=== PATIENT | male | born 1995 | race Caucasian/White ===

== ENCOUNTER 2016-06-05 17:43 | Emergency (ER) | payer BC ==
[2016-06-05 17:57] VITALS: BP 132/77
[2016-06-05] MEDS ORDERED: diphenhydrAMINE HCL 50 MG/ML VIAL IM ONE (18:54)
[2016-06-05] MEDS ORDERED: BENZTROPINE MESYLATE 0.5 MG TABLET PO ONE (19:15)
[2016-06-05] MEDS ORDERED: BENZTROPINE MESYLATE 1 MG/ML AMPUL ONE (19:18)
[2016-06-05] MEDS ORDERED: diphenhydrAMINE HCL 25 MG CAPSULE ONE (19:22)
[2016-06-05] MEDS ORDERED: diphenhydrAMINE HCL 25 MG CAPSULE PO ONE (19:25)
--- NOTE | 2016-06-05 19:29 | ERNOTE ---
Medical Problem HPI - Narrative Date of Service: 06/05/16 - General Chief Complaint: General Assessment Time Seen by Provider: 06/05/16 18:47 Source: patient Exam Limitations: no limitations - Immun/Allergies/Home Medications Immunizations: IMMUNIZATION HX History of Influenza Vaccine No Hx Pneumococcal Vaccination No Allergies/Adverse Reactions: Allergies No Known Allergies Allergy (Verified 06/05/16 17:57) Home Medications: HOME MEDICATIONS ALPRAZolam [Xanax] 0.25 mg PO BID PRN 06/05/16 [Last Taken Unknown] Ziprasidone HCl [Geodon] 20 mg PO BID 06/05/16 [Last Taken Unknown] - History of Present History Narrative: Pt. comes in with c/o tongue thrusting to the L side of his mouth and the inability to get air out when he took a breath in . These symptoms started a hour ago and 1/2 hour after he took his Geodon. Pt. was started on Geodon four days ago and has not had any other symptoms with previous dosages. Review of Systems - Review of Systems Constitutional: Present: no symptoms reported. Absent: recent illness, fever, chills, weakness, fatigue EYE: Present: no symptoms reported ENT: Present: no symptoms reported Respiratory: Present: no symptoms reported. Absent: shortness of breath, cough , wheezing Cardiology: Present: no symptoms reported. Absent: chest pain, palpitations Gastrointestinal/Abdominal: Present: no symptoms reported Genitourinary: Present: no symptoms reported. Absent: frequency, decreased urinary output Musculoskeletal: Present: no symptoms reported. Absent: back pain, joint pain Skin: Present: no symptoms reported Neurological: Present: See HPI All Other Systems: All systems neg except as marked - Patient's Past Medical History Patient History - Medical: No pertinent hx Patient History - Cardiac/Respiratory: No pertinent hx Patient History - Cancer: No Hx of Cancer Patient History - Surgical Procedures: No surgical history Patient History - Other: None - Social History Living Situations: home Psych History: Hx of Bipolar Disorder Smoking Status: Current every day smoker Have you smoked in the past 12 months: No Do you dip or chew tobacco: No - Immunizations Hx Pneumococcal Vaccination: No History of Influenza Vaccine: No Physical Exam - Physical Exam General Appearance: Present: wd/wn, alert, no apparent distress Eye Exam: Normal inspection: bilateral, PERRL: bilateral, EOMI: bilateral Ears, Nose, Throat: Present: normal ENT inspection, hearing grossly normal, normal pharynx Neck: Present: normal inspection, nontender. Absent: lymphadenopathy (R), lymphadenopathy (L) Respiratory: Present: no respiratory distress, normal breath sounds, no accessory muscle use, chest nontender, lungs clear Cardiovascular/Chest: Present: regular rate, rhythm, no murmur, normal peripheral pulses Gastrointestinal/Abdominal: Present: normal bowel sounds, nontender, nondistended, soft Back Exam: Present: normal inspection, normal range of motion, no CVA tenderness , no vertebral tenderness Extremity Exam: Present: normal inspection, non-tender, no edema, normal range of motion Neurological Exam: Present: alert, oriented, normal mood/affect, no motor/ sensory deficits, 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 Absent: pallor, skin rash ED Progress - Date and Time Seen: Date and Time: 06/05/16 19:[address] Baires and he recommends having pt. hold kari tomorrow and having him follow up with Emelina on Monday. also he reccommends one dose of cogentin 2 mg and Benadryl - Vital Signs Patient's Vital Signs:: I have reviewed the patient's vital signs. Vital Signs: Vital Signs 06/05/16 17:51 Temperature 35.7 C L Pulse Rate 88 Respiratory 12 Rate Blood Pressure 132/77 O2 Sat by Pulse 99 Oximetry - Progress/Reassessment Chief Complaint: General Assessment Departure - Departure Clinical Impression: Dystonia, Medication reaction Disposition: Home self-care Condition: Good Instructions: Dystonia Additional Instructions: Please follow up with Emelina Lima in her office on Monday. Please do not take any more Kari. Referrals: Emelina Lima ARNP [Primary Care Provider] -
== END 2016-06-05 19:51 | disposition home or self-care (01) ==
LOC: ER 17:43
DX: G24.02 Drug induced acute dystonia (principal); T43.595A Adverse effect of other antipsychotics and neuroleptics, initial encounter; F17.210 Nicotine dependence, cigarettes, uncomplicated; F31.9 Bipolar disorder, unspecified